=== PATIENT | male | born 1940 | race Caucasian/White ===

== ENCOUNTER 2018-07-01 10:22 | Inpatient (IN) ==
--- NOTE | 2018-07-01 10:35 | EKG Report ---
Test Performed on : 07/01/2018 10:29:38 AM Test Reason : ams Blood Pressure : / mmHG Vent. Rate : 070 BPM Atrial Rate : 070 BPM P-R Int : 248 ms QRS Dur : 152 ms QT Int : 446 ms P-R-T Axes : 068 -81 085 degrees QTc Int : 481 ms Atrial-sensed ventricular-paced rhythm with prolonged AV conduction Abnormal ECG No previous ECGs available Unconfirmed Result
[2018-07-01] MEDS ORDERED: ROCEPHIN 1 GM in NS 50 ML IV ONE (11:12)
[2018-07-01] MEDS ORDERED: ZITHROMAX 500 MG/NS 500 MG/250 ML IVPB IV ONE (11:12)
--- NOTE | 2018-07-01 11:14 | Diag Imaging Result Doc PS360 ---
EXAM: KUB ABDOMEN 07/01/2018 HISTORY: diarrhea TECHNIQUE: KUB COMMENT: The bowel gas pattern is nonspecific. The pelvis is not included on the study. There are surgical clips in the right upper quadrant. There is no evidence organomegaly or mass. IMPRESSION: Nonspecific abdomen. Electronically signed by Toi Dias 07/01/2018 11:12 AM
--- NOTE | 2018-07-01 11:15 | Diag Imaging Result Doc PS360 ---
EXAM: CHEST-PORTABLE 07/01/2018 HISTORY: weakness TECHNIQUE: AP portable upright at 1055 COMMENT: There is a dense alveolar opacity in the right upper lobe which was not present on 03/30/2018. The heart size and pulmonary vascularity are within normal limits. IMPRESSION: Right upper lobe pneumonia. Advise follow-up until clear. Electronically signed by Toi Dias 07/01/2018 11:13 AM
[2018-07-01 11:26] LABS: BASO# 0.01 X1000 (0.0-0.2); BASO% 0.1 % (0.0-0.8); EOS# 0.04 X1000 (0.0-0.7); EOS% 0.3 % (0.0-10.0); HEMATOCRIT 31.4 % (42.0-52.0); HEMOGLOBIN 9.8 g/dL (14.0-18.0); IMM GRAN# 0.07 X1000 (0.0-0.04); IMM GRAN% 0.6 % (0.0-0.5); LYMPH# 1.16 X1000 (1.2-3.4); LYMPH% 9.6 % (20.5-51.1); MCH 25.7 PG (27-31); MCHC 31.2 g/dL (33-37); MCV 82.2 FL (81-99); MONO# 1.04 X1000 (0.11-0.59); MONO% 8.6 % (1.7-9.3); MPV 9.7 FL (7.4-10.4); NEUT# 9.82 X1000 (1.4-6.5); NEUT% 80.8 % (42.2-75.2); PLT 367 X1000 (130-400); RBC 3.82 XMIL (4.7-6.1); RDW 14.1 % (11.5-14.5); WBC 12.14 X1000 (4.8-10.8)
[2018-07-01 11:28] LABS: INR 1.11; PROTIME 15.2 Seconds (11.0-16.0)
[2018-07-01 11:29] LABS: PTT 38.8 Seconds (22.3-41.8)
[2018-07-01 11:32] LABS: URINE SOURCE CLEAN CATCH
[2018-07-01 11:37] LABS: BILIRUBIN URINE NEGATIVE (NEGATIVE); BLOOD URINE NEGATIVE (NEGATIVE); COLOR YELLOW; GLUCOSE URINE NEGATIVE (NEGATIVE); KETONE URINE NEGATIVE (NEGATIVE); LEUKOCYTES URINE NEGATIVE (NEGATIVE); NITRITE URINE NEGATIVE (NEGATIVE); PH URINE 5.5; PROTEIN URINE NEGATIVE (NEGATIVE); TURBIDITY URINE CLEAR (CLEAR); UROBILINOGEN URINE NORMAL (NORMAL)
[2018-07-01 11:38] LABS: UR EPITHELIAL CELLS <10 /HPF (<10); URINE BACTERIA NEGATIVE /HPF; URINE RBC <10 /HPF (<10); URINE WBC <10 /HPF (<10)
[2018-07-01 11:43] LABS: AGAP 12; ALB/GLOB RATIO 1.2; ALBUMIN 2.9 g/dL (3.5-5.0); ALKALINE PHOSPHATASE 110 U/L (32-122); BUN 8 mg/dL (8-22); CALCIUM 7.9 mg/dL (8.8-10.2); CHLORIDE 100 mmol/L (98-107); COSMO 277; ESTIMATED GFR > 60; GLUCOSE 118 mg/dL (70-104); GOT 28 U/L (10-34); GPT 19 U/L (10-44); MAGNESIUM 1.9 mg/dL (1.5-2.7); PHOSPHORUS 3.1 mg/dL (2.7-4.5); POTASSIUM 3.8 mmol/L (3.5-5.1); SODIUM 139 mmol/L (136-145); TCO2 27 mmol/L (25-35); TOTAL BILIRUBIN 0.33 mg/dL (0.20-1.00); TOTAL PROTEIN 5.4 g/dL (6.3-8.3)
[2018-07-01] MEDS ORDERED: CALCIUM CHLORIDE SYRINGE IV ONE (11:45)
[2018-07-01] MEDS ORDERED: ZOFRAN IV PRN (11:49)
[2018-07-01] MEDS ORDERED: NS 1,000 ML IV ONE (11:49)
--- NOTE | 2018-07-01 11:49 | PROVIDER DOCUMENTATION ---
This chart was entered by Akilah Lee Scribe, acting as scribe for Gibran Stovall MD. HPI-General Adult - General Chief Complaint: Diarrhea Stated Complaint: DIARRHEA Time Seen by Provider: 07/01/18 10:45 Source: patient, family (), EMS Allergies/Adverse Reactions: Patient Allergies Allergy/AdvReac Type Severity Reaction Status Date / Time morphine AdvReac Unknown Verified 06/02/18 15:38 Home Medications: Home Medication List Medication Instructions Recorded Confirmed Last Taken Type Clopidogrel Bisulfate [Clopidogrel] 75 mg PO DAILY 03/30/18 07/01/18 Unknown History Pravastatin Sodium 40 mg PO HS 03/30/18 07/01/18 Unknown History Ranitidine [Zantac] 150 mg PO BID 03/30/18 07/01/18 Unknown History Apixaban [Eliquis] 1 tab PO BID 07/01/18 07/01/18 Unknown History Diazepam 1 tab PO BID PRN 07/01/18 07/01/18 Unknown History Sotalol HCl [Sotalol] 1 tab PO BID 07/01/18 07/01/18 Unknown History - History of Present Illness -Gen Adult Nature of Presenting Problems: Patient is a 77 year old male who presents to the ED via EMS with multiple complaints. Patient states he has been having diarrhea for 2 months. Patient's states patient has had weakness, diaphoresis, and confusion. Patient's states patient had a GI workup 1 week ago. Patient denies blood in stool. also notes cough x 1 week Location of Pain/Injury: reports: none Pain Radiation: reports: no radiation Quality of Pain: reports: none Severity: reports: mild Onset/Duration: reports: other (2 months) Timing: reports: still present, getting worse Context/Activities at Onset: reports: light activity Modifying Factors: improves with: nothing Associated Symptoms: reports: diaphoresis, diarrhea, weakness, other (confusion) Similar Symptoms Previously?: Yes Recently seen or treated by another doctor?: Yes Review of Systems - Adult - REVIEW OF SYSTEMS - ADULT Constitutional: reports: no symptoms reported Eyes: reports: no symptoms reported Ears, Nose, Mouth & Throat: reports: no symptoms reported Cardiovascular: reports: no symptoms reported Respiratory: reports: no symptoms reported Gastrointestinal: reports: diarrhea. denies: abdominal pain, nausea, vomiting Genitourinary: reports: no symptoms reported Musculoskeletal: reports: muscle weakness. denies: back pain, neck pain Integumentary: reports: no symptoms reported Neurological: reports: other (confusion). denies: dizziness/vertigo, headache/ migraines, numbness, seizure Psychiatric: reports: no symptoms reported Endocrine: reports: no symptoms reported Hematologic/Lymphatic: reports: no symptoms reported Allergic/Immunologic: reports: no symptoms reported All Other Systems: Reviewed and Negative Past History - Adult - PAST MEDICAL HISTORY-ADULT Review of Records: reports: Nursing Assessment Review, Medications Reviewed, Social history reviewed & non-contributory. Major Childhood Illnesses: reports: denies history Cardiovascular: reports: pacemaker Respiratory: reports: denies history Gastrointestinal: reports: denies history Obstetrical/Gynecological: reports: denies history Genitourinary: reports: prostate cancer Musculoskeletal: reports: denies history Neurological: reports: TIA Psychiatric: reports: denies history Endocrine/Immune: reports: denies history Other Conditions: reports: denies history - PRIOR SURGERIES/PROCEDURES Surgical/Procedure History: reports: reviewed, not pertinent, cardiac stent, pacemaker - IMMUNIZATION STATUS Childhood Immunizations: See Nurse Assessment Flu Vaccine: See Nurse Assessment - FAMILY HISTORY Family History: reviewed, not pertinent - SOCIAL HISTORY Smoking: cigarettes (former) Substance Use: denies Living Situation: family Physical Exam-General - PHYSICAL EXAM-ADULT Initial Vital Signs Reviewed: Yes - CONSTITUTIONAL General Appearance: alert, no apparent distress, lethargic - HEAD, EARS, NOSE, MOUTH & THROAT HENMT: other (dry mucous membranes) - RESPIRATORY Respiratory: chest non-tender, lungs clear, normal breath sounds - CARDIOVASCULAR Cardiovascular: systolic murmur (1/6), other (distant heart sounds) - GASTROINTESTINAL (ABDOMEN) Abdominal Exam: normal bowel sounds, soft, tenderness (LLQ) - MUSCULOSKELETAL Extremity: non-tender, normal inspection - SKIN Integumentary: pallor, other (poor skin turgor) - NEUROLOGIC Neurologic: grossly normal - PSYCHIATRIC Psych/Mental Status: normal mood/affect, oriented x 3 Progress - PLAN OF CARE/RESULTS Progress/Plan/Lab Results: Vital Signs - 8 hr 07/01/18 10:34 Temperature 97.7 F Pulse Rate 73 Respiratory Rate 18 Blood Pressure 125/66 O2 Sat by Pulse Oximetry 99 Orders Category Date Time Status Nursing- Obtain EKG once Care 07/01/18 10:25 Active Saline Loc NOW Care 07/01/18 10:25 Active CHEST-PORTABLE [RAD] Stat Exams 07/01/18 10:27 Ordered KUB ABDOMEN [RAD] Stat Exams 07/01/18 10:27 Ordered ACETONE SERUM [CHEM] Stat Lab 07/01/18 10:26 Ordered C DIFF TOXIN [STOOL] Stat Lab 07/01/18 10:26 Uncollected CBC WITH ELECTRONIC DIFF [HEME] Stat Lab 07/01/18 10:26 Uncollected COMPREHENSIVE METABOLIC PANEL [CHEM] Stat Lab 07/01/18 10:26 Uncollected LACTATE, PLASMA [CHEM] Stat Lab 07/01/18 10:27 Uncollected MAGNESIUM [CHEM] Stat Lab 07/01/18 10:27 Uncollected OCCULT BLOOD SCREENING [STOOL] Stat Lab 07/01/18 10:27 Uncollected PRO B-NATRIURETIC PEPTIDE Stat Lab 07/01/18 10:27 Uncollected PROTIME WITH INR [COAG] Stat Lab 07/01/18 10:27 Uncollected PTT [COAG] Stat Lab 07/01/18 10:27 Uncollected TROPONIN T Stat Lab 07/01/18 10:27 Uncollected TSH Stat Lab 07/01/18 10:27 Ordered TYPE & SCREEN [BBK] Stat Lab 07/01/18 10:27 Uncollected URINALYSIS W/POSS RFLX CULT [URINALYSIS] Stat Lab 07/01/18 10:27 Uncollected phos [PHOSPHORUS] [CHEM] Stat Lab 07/01/18 10:27 Uncollected EKG [EKG] Stat Ther 07/01/18 10:25 Draft Result Diagrams: 07/01/18 10:50 07/01/18 10:50 - EKG 1 Time of EKG reading by physician:: 10:29 EKG Read and Signed by:: Gibran Stovall EKG Interpretation (*Must complete 3 of following elements*): Abnormal Rate: 70 Rhythm: atrial-sensed ventricular-paced rhythm with prolonged AV conduction Comments: abnormal ECG - XRAY 1 XRAY Study: Chest Impression: See EMR Report (Signed EXAM: CHEST-PORTABLE 07/01/2018 HISTORY: weakness TECHNIQUE: AP portable upright at 1055 COMMENT: There is a dense alveolar opacity in the right upper lobe which was not present on 2017. The heart size and pulmonary vascularity are within normal limits. IMPRESSION: Right upper lobe pneumonia. Advise follow-up until clear. Electronically signed by Toi Dias 07/01/2018 11:13 AM 07/01/18 1113 Interpreting Physician: Toi Dias MD Dictated Date/Time: 1112 cc: Gibran Stovall MD; J Luis Carroll MD) 2 XRAY Study: Abdomen Impression: See EMR Report ( EXAM: KUB ABDOMEN 07/01/2018 HISTORY: diarrhea TECHNIQUE: KUB COMMENT: The bowel gas pattern is nonspecific. The pelvis is not included on the study. There are surgical clips in the right upper quadrant. There is no evidence organomegaly or mass. IMPRESSION: Nonspecific abdomen. Electronically signed by Toi Dias 07/01/2018 11:12 AM 1112 Interpreting Physician: Toi Dias MD Dictated Date/Time: 07/01/18 1112 cc: Gibran Stovall MD; J Luis Carroll MD) - CONSULTS/PCP/HOSPITALIST Notification #1 *Consult/PCP/Hospitalist*: Glen Time Discussed: 11:49 Consult Disposition: Admit Departure - Departure Date of Disposition Decision: 07/01/18 Time of Disposition Decision: 11:46 DIAGNOSIS: Hypocalcemia syndrome, Dehydration Right upper lobe pneumonia Qualifiers: Pneumonia type: due to unspecified organism Qualified Code(s): J18.1 - Lobar pneumonia, unspecified organism Anemia Qualifiers: Anemia type: iron deficiency Iron deficiency anemia type: chronic blood loss Qualified Code(s): D50.0 - Iron deficiency anemia secondary to blood loss ( chronic) Diarrhea Qualifiers: Diarrhea type: unspecified type Qualified Code(s): R19.7 - Diarrhea, unspecified Disposition: ADMITTED INPATIENT 09 Certified Medical Emergency: Emergent Condition: Fair Referrals and Follow-Ups: J Luis Carroll MD [Primary Care Provider] - - Critical Care Note This patient required my direct & personal management of CC.: No Attestation - Physician/ PAZ Attestation Patient care was provided by Advanced Practice Provider:: No The physician spent face to face time with patient:: Yes Advanced Practice Provider documentation review:: Supervising physician onsite and consulted in the evaluation and care of this patient. The physician did have a face to face encounter with the patient. This chart was documented by the indicated scribe, (Akilah Lee, Roseanna) and accurately reflects the services I performed and decisions made by me, Gibran Stovall MD, as attested by the provider's signature.
[2018-07-01] MEDS: TYLENOL PO PRN (14:43)
--- NOTE | 2018-07-01 15:20 | Diag Imaging Result Doc PS360 ---
CT THORAX W/CONTRAST - 07/01/2018 INDICATION: abnormal cxr COMPARISON: 04/02/2018 FINDINGS: There is dense consolidation of the apical and posterior segments of the right upper lobe. This appears cavitary, as a necrotic pneumonia. There is some trace infiltrate or scarring in the lingula that has improved since prior. There is a worsening infiltrate in the right middle lobe. No acute bony lesions. No drainable fluid collections. No adenopathy. IMPRESSION: 1. Necrotizing pneumonia in the right upper lobe. 2. Mixed changes in smaller infiltrates in the lingula and right middle lobe. This exam was performed using automated exposure control, adjustment of mA or kV according to patient size, and/or use of iterative reconstruction technique Electronically signed by Doyle Camarena 07/01/2018 3:18 PM
[2018-07-01] MEDS ORDERED: LOMOTIL PO PRN (15:36)
[2018-07-01] MEDS ORDERED: VALIUM PO PRN (15:59)
[2018-07-01] MEDS: ZOSYN 3.375 GM in NS 50 ML IV SCH (16:18)
[2018-07-01] MEDS ORDERED: FLAGYL PO SCH (17:00)
[2018-07-01] MEDS: DUONEB (A & A) INH SCH (23:26)
[2018-07-02] MEDS: CULTURELLE PO SCH ×3 (00:22→21:06)
[2018-07-02] MEDS: TYLENOL PO PRN ×5 (00:23→15:48)
[2018-07-02] MEDS: PRAVACHOL PO SCH ×2 (00:23→21:05)
[2018-07-02] MEDS: ZANTAC PO SCH ×3 (00:23→21:05)
[2018-07-02] MEDS: ZOSYN 3.375 GM in NS 50 ML IV SCH ×5 (00:24→21:06)
[2018-07-02] MEDS: BETAPACE PO SCH ×3 (00:33→21:04)
--- NOTE | 2018-07-02 03:52 | HISTORY AND PHYSICAL ---
CHIEF COMPLAINT: Diarrhea. HISTORY OF PRESENT ILLNESS: This 77-year-old white male presented to the emergency room this morning, unannounced, with a complaint of 2 months of diarrhea. The patient and his have a habit of showing up in either this ER or [facility] unannounced. He saw Dr. Cornejo last week for his diarrhea. He was also seen [facility]'s ER last March for hemoptysis and Ct of chest was performed there which showed bronchiectasis or consolidation of a small portion of the RUL. I had thought that this was due to epistaxis/aspiration. The patient states that he has been coughing abit, nonproductive. He has not really had shortness of breath. He has not had any chest pain. He has terrible abdominal pain and diarrhea multiple times per day, despite taking Imodium. I do not have the results of Dr. Cornejo's studies. ALLERGIES: Morphine. MEDICATIONS: Eliquis 5 mg p.o. b.i.d., clopidogrel 75 mg p.o. daily, Valium 10mg p.o. b.i.d., gabapentin 300 mg p.o. b.i.d., ranitidine 150 mg p.o. b.i.d., and sotalol 120 mg p.o. b.i.d. PAST MEDICAL HISTORY: 1. History of C difficile x3. 2. Prostate cancer. 3. Irritable bowel syndrome. 4. Coronary artery disease. 5. Gastroesophageal reflux disease. 6. Anxiety and depression. 7. Insomnia. 8. History of hypotension. 9. Atrial fibrillation. PAST SURGICAL HISTORY: 1. Prostatectomy. 2. Cardiac stents x4. 3. Pacemaker. 4. Cholecystectomy. 5. Other heart catheterization. SOCIAL HISTORY: The patient is and lives with his . Last year, they had relocated from [place] to [place], [place]. FAMILY HISTORY: Noncontributory. REVIEW OF SYSTEMS: The patient's stated that he was not making sense and this morning he was not in his usual state of mind. He has been coughing for over a month. He has had diarrhea for over a month. He has not coughed up any blood. He has not vomited. He has abdominal pain after eating. He denies any genitourinary complaints. He has vague muscle aches consistent with generalized arthritis, but otherwise negative. There have been no other neurological or psychiatric signs and symptoms, other than the 's claim that he was disoriented this morning. PHYSICAL EXAMINATION: He is difficult to understand because of somewhat slurred method of speaking, which is his baseline. HEENT: Sclerae are anicteric. Oral mucosa is adequately hydrated.. LUNGS: Few crackles in the right upper lobe. Has good air movement. No wheezing. CARDIOVASCULAR: Appears regular at the time of my examination. ABDOMEN: Bowel sounds are present. He is tender. There is no palpable mass. EXTREMITIES: No peripheral edema. NEUROPSYCHIATRIC: The patient seems alert and oriented. Speech is slurred, but this is kind of a baseline for him. NEUROLOGICAL: There are no cranial nerve deficits. DIAGNOSTIC STUDIES: White cell count 12.1, hematocrit 31.4. BUN is 8, creatinine 1.0, blood sugar 118. ProBNP was 957. Troponin was negative. Urinalysis was negative. Acetone level was normal. Microbiology shows negative flu test, negative stool for occult blood. He was C difficile toxin positive. ASSESSMENT AND PLAN: 1. In review of the patient's CT scan from March, he had some mild pleural abutment and consolidation in the right upper lobe at that time. I thought this was due to a nose bleed/aspiration and not necessarily from lung originated hemoptysis; however, bronchiectasis was introduced as a possibility.At the time of my follow up he was asymptomatic. The CT scan today shows much more extensive involvement of the right upper lobe with elements that were necrotizing. I have started the patient on Zosyn for better anaerobic coverage. I will consult Dr. Ann to see if there is anything further we need to look at. I will order sputum cultures. 2. The patient is Clostridium difficile positive again. I believe this makes 4 times in his lifetime that he has been positive for this. I have started p.o. Flagyl and probiotic agents. We will also consider use of other antidiarrheals as time goes on. 3. The patient is on sotalol and Eliquis for a-fib For the present time, and with the possibility of bronchoscopy looming, I am going to hold his Eliquis. 4. The remainder of the patient's home medications will be put back in place in some form or fashion, although I would like to reduce the amount of Valium that he has been taking. cc: J Luis Carroll MD MTDD
[2018-07-02] MEDS ORDERED: VALIUM PO PRN (07:11)
--- NOTE | 2018-07-02 07:19 | EKG Report ---
Test Performed on : 07/02/2018 07:11:43 AM Test Reason : CP Blood Pressure : / mmHG Vent. Rate : 066 BPM Atrial Rate : 066 BPM P-R Int : 248 ms QRS Dur : 152 ms QT Int : 488 ms P-R-T Axes : 066 -83 080 degrees QTc Int : 511 ms Atrial-sensed ventricular-paced rhythm with prolonged AV conduction Abnormal ECG When compared with ECG of 01-JUL-2018 10:29, (Unconfirmed) Vent. rate has decreased BY 4 BPM Unconfirmed Result
[2018-07-02] MEDS: DUONEB (A & A) INH SCH ×5 (07:40→21:00)
--- NOTE | 2018-07-02 09:13 | PROGRESS NOTE ---
DATE: 07/02/2018 SUBJECTIVE: The patient is sitting in the bed, trying to arrange his clear liquid diet for consumption. He states that his "head is splitting open". He states that he did not sleep because every time he got comfortable, he would have to jump up and go to the restroom because of diarrhea. Results of the patient's studies were discussed in full. His was not present. OBJECTIVE: Vital Signs: 98.8, 67, 100/49, mean arterial pressure of 61, 98% saturated. Physical Examination: It is noted that the patient had a rectal tube inserted. There is liquid stool which appears to be somewhat bilious or almost black. The patient's lungs are clear. He has good air movement. He has coughed up a bit of sputum which does not appear to be purulent. Laboratory: No laboratories ordered today. ASSESSMENT AND PLAN: 1. The patient has a necrotizing pneumonia in the right upper lobe. Dr. Ann has been consulted. 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 I will leave that decision-making up to Dr. Ann. He will continue on Zosyn for the present time. 2. The patient has Clostridium difficile again. He has antigen and antibody positive in his stool. He has a rectal tube. I have changed him from Flagyl over to oral vancomycin in the higher doses. I have also added some Welchol to his regimen to hopefully slow down his stooling. 3. The patient's Eliquis and Plavix have been held in the event that he needs a bronchoscopy. The patient has a pacemaker and appears to be in sinus rhythm on electrocardiogram. Due to low blood pressure, reduction in his sotalol dose may be in order. We will monitor this. 4. The remainder of home medications remain intact with the exception of a reduction in dose of Valium. cc: J Luis Carroll MD
[2018-07-02] MEDS: POTASSIUM CHLORIDE 10 MEQ in D5 NS 1,000 ML IV SCH (09:51)
[2018-07-02] MEDS: VANCOCIN PO SCH ×3 (09:52→21:04)
[2018-07-02] MEDS: WELCHOL PO SCH ×2 (10:10→21:05)
--- NOTE | 2018-07-02 12:45 | GASTROENTEROLOGY CONSULTATION ---
DATE: 07/02/2018 REASON FOR CONSULTATION: Diarrhea, C. difficile. HISTORY OF PRESENT ILLNESS: This is a 77-year-old male, known to our practice. He was actually just seen in our office on , 06/27/2018. He was referred by Dr. Carroll for diarrhea. Patient had reported having C difficile on 2 different occasions over the last year. He states he had gotten C. difficile after taking an antibiotic for a tooth extraction, He was treated with antibiotics. Diarrhea had resolved, but had come back over the last 6 weeks. He reported loss of appetite and weight loss of over 40 pounds. He has also been to the emergency room several times for IV fluids for dehydration. On 06/02/2018, he went to the emergency room and was found to be mildly anemic with a hemoglobin of 10.8 and hematocrit of 33.2. He had denied any visible blood in the stool or black stools. We had ordered a C. difficile by PCR due to patient's history of C. difficile. That test came back positive, and we tried to call the patient this morning to give him a report and start antibiotics and his answered and states he had come in to the hospital for further evaluation. Then, we subsequently received the consult. Patient currently has a rectal tube in place with liquid greenish- brown stool. He has been started on vancomycin along with Welchol. He has also been started on a probiotic. Patient does report lower abdominal tenderness. PAST MEDICAL HISTORY: Coronary artery disease, prostate cancer, irritable bowel syndrome, GERD, anxiety, depression, insomnia, history of hypotension, history of atrial fibrillation, history of C. difficile (this is the 3rd occurrence). PAST SURGICAL HISTORY: Prostatectomy, cardiac stents x4, pacemaker, cholecystectomy. ALLERGIES: Morphine, unknown reaction. HOME MEDICATIONS: Eliquis twice daily. Plavix 75 mg daily. Diazepam 1 tablet twice daily as needed. Pravastatin 40 mg every night. Zantac 150 mg twice a day. Sotalol 1 twice a day. SOCIAL HISTORY: He is , lives with his . They had moved here from [place] last year. REVIEW OF SYSTEMS: Per History of Present Illness. PHYSICAL EXAMINATION: Vital Signs: Temperature 98.8 degrees, pulse 67, blood pressure 100/49. General: Patient is awake, alert, in no acute distress. He is oriented to person and place. HEENT: Normocephalic atraumatic. Pupils equal, round, and reactive to light. Sclerae nonicteric. Lungs: Lung sounds essentially clear. Cardiovascular: Regular rate. Abdomen: Soft, tenderness in the lower abdomen. Extremities: No lower extremity edema noted. Neurologic: Patient is alert. He does seem to be anxious at times, but he is oriented to person and place. His was at the bedside and was leaving to go home for a short period of time. DIAGNOSTIC RESULTS: Laboratory: Hematology: WBC 12.14, hemoglobin 9.8, hematocrit 31.4, MCV 82.2, platelets 367,000. Coagulation: Pro-time 15.2, INR 1.11, PTT 38.8. Chemistry: Sodium 139, potassium 3.8, chloride 100, CO2 27, BUN 8 creatinine 1.0 glucose 118 calcium 7.9, phosphorus 3.1. Magnesium 1.9. Total bilirubin 0.33, AST 28, ALT 19, alkaline phosphatase 110, albumin 2.9. Urinalysis was negative. ASSESSMENT AND PLAN: 1. Clostridium difficile. In our office, we had done a C. difficile by PCR, and it was positive. Patient has been started on vancomycin, also started on Welchol, and probiotics. Continue current management. Patient has a rectal tube in place. 2. Necrotizing pneumonia. Antibiotics in place. Dr. Ann has been consulted. 3. Coronary artery disease, history of pacemaker, and history of irregular heart rate. Patient takes Eliquis and Plavix. I think those have been on hold for now. Continue current management. Since this is patient's 3rd occurrence he will most likely need an extended outpatient course of antibiotic and a tapering course. After this treatment, if C. difficile returns , would consider fecal transplant. We will continue to follow during his hospital course, and further plans will be made according to his progress. I have discussed this case with Dr. Cornejo. Dictated by LAWRENCE Estrada for Savage Cornejo MD cc: LAWRENCE May MD Timothy P. Weirich, MD [facility] HOSPITALMalcolm
--- NOTE | 2018-07-02 14:11 | PULMONOLOGY CONSULTATION ---
DATE: 07/01/2018 REASON FOR CONSULTATION: Necrotizing pneumonia. HISTORY OF PRESENT ILLNESS: Mr. Dacosta is a 77-year-old white male with a 60 pack year history for tobacco (nonsmoker for 10 years) who was seen last March at [facility] coughing up blood. CT scan of the thorax at that time revealed some atelectasis/ infiltrate in the right upper lobe with small area of consolidation/bronchiectasis in the lingular segment of the left upper lobe. By patient's recount the hemoptysis stopped. The patient has felt poorly for the last 4 to 6 weeks with ongoing weakness and diarrhea. He has had a cough with progressive shortness of breath and weakness. He has lost approximately 16 pounds over the last 3 months. He has had periodic fevers and chills. He is having multiple loose stools daily. PAST MEDICAL HISTORY: 1. History of coronary artery disease with prior stent placement and prior myocardial infarction. 2. Status post pacemaker placement. 3. Irritable bowel syndrome . 4. Diverticulosis. 5. Gastroesophageal reflux disease. 6. History of prostate cancer. 7. Osteoarthritis. 8. Prior alcohol use. 9. Status post cholecystectomy. SOCIAL HISTORY: Prior tobacco and alcohol use. FAMILY HISTORY: Noncontributory to current presentation. REVIEW OF SYSTEMS: As noted in the HPI. The patient also reports significant gingivitis. PHYSICAL EXAMINATION: General: Reveals a frail, chronically ill-appearing male who appears in no distress. He has been afebrile for the last 24 hours. Blood pressure 131/53, heart rate 93, respiratory rate 16, oxygen saturation 100%. HEENT: Pupils are equal and reactive. Oropharynx is clear. Neck: Supple. Chest: Reveals rhonchi bilaterally. Cardiac: S1- S2. Abdomen: Soft with increased bowel sounds. Extremities: Without edema. Neurologic: The patient moves all extremities without difficulty. Cranial nerves 2-12 appear to be grossly intact. LABORATORIES: CT scan of the thorax reveals a lung abscess in the right upper lobe, which was not present 04/02/2018 Infiltrates in the lingula have decreased from prior scan with increased infiltrates in the right middle lobe. White blood count 12.14, hemoglobin 9.8, platelet count 367,000. Sodium 139, potassium 3.8, chloride 100, BUN 8, creatinine 1.0, total protein 5.4, albumin 2.9, globulin fraction 2.5. C difficile toxin collected 06/29/2018 is positive, C difficile antigen test from 07/01/2018 the antigen is positive Impression: 1. Right upper lobe lung abscess 2. Bronchiectasis 3. Fluctuating infiltrates in the right middle lobe and lingula 4. Abnormal weight loss 5. Clostridium difficile colitis 6. History of tobacco use Recommendations 1. Continue current antibiotic regimen. I anticipate he will need up to 6 weeks of an oral antibiotic for clearing of this lung abscess 2. Collect sputum for C+S 2. Continue bronchial hygiene with nebulizers and the addition of incentive spirometry 3. Consider nutrition consult. Will add Boost to his dietary regimen. 4. Check immunoglobulin levels to ensure he does not need IgG replacement. 5. Treatment of the difficile colitis as you're doing. This will be more complicated due to his need for antibiotics for his lung abscess. cc: MD J Luis Parker MD MTDD
[2018-07-02] MEDS: NORCO-5 PO PRN (18:48)
--- NOTE | 2018-07-02 21:11 | PULMONOLOGY PROGRESS NOTE ---
DATE: 07/02/2018 SUBJECTIVE: The patient is awake, alert. He remains in bed. He has mild cough effort. OBJECTIVE: Vital Signs: The patient has been afebrile over the last 24 hours. BP 100/49, heart rate 67, respiratory rate 16. Oxygen saturation 98%. HEENT: Pupils are equal and reactive. Oropharynx is clear. Neck: Supple. Chest: Reveals rhonchi bilaterally. Cardiac exam: S1, S2. Abdomen: Soft with positive bowel sounds. Extremities: Without edema. LABORATORIES: IgG total is normal at 728. Sputum culture is pending. IMPRESSION: A 77-year-old with: 1. Right upper lobe lung abscess. 2. Bronchiectasis. 3. Fluctuating infiltrates in the middle lobe and lingula. 4. Clostridium difficile colitis. 5. Abnormal weight loss with protein calorie malnutrition. 6. History of tobacco use. RECOMMENDATION: 1. Continue current antibiotics pending results of microbiology data. 2. Continue bronchial hygiene. 3. Continue to promote nutrition with caloric replacement. 4. Continue treatment for difficile colitis. 5. Anticipate 4 to 6 weeks of an antibiotic for his lung abscess. This can be an oral agent. cc: MD J Luis Parker MD
[2018-07-03] MEDS: POTASSIUM CHLORIDE 10 MEQ in D5 NS 1,000 ML IV SCH ×2 (00:39→05:10)
[2018-07-03] MEDS: ZOSYN 3.375 GM in NS 50 ML IV SCH ×4 (03:04→21:50)
[2018-07-03] MEDS: VANCOCIN PO SCH ×4 (03:04→20:24)
[2018-07-03] MEDS: NORCO-5 PO PRN ×2 (05:10→21:23)
[2018-07-03 07:02] LABS: BASO# 0.01 X1000 (0.0-0.2); BASO% 0.1 % (0.0-0.8); EOS# 0.09 X1000 (0.0-0.7); HEMOGLOBIN 8.8 g/dL (14.0-18.0); LYMPH# 0.81 X1000 (1.2-3.4); LYMPH% 9.3 % (20.5-51.1); MCHC 31.4 g/dL (33-37); MCV 82.8 FL (81-99); MONO# 0.83 X1000 (0.11-0.59); MONO% 9.5 % (1.7-9.3); MPV 9.6 FL (7.4-10.4); NEUT% 80.1 % (42.2-75.2); PLT 345 X1000 (130-400); RBC 3.38 XMIL (4.7-6.1); RDW 14.2 % (11.5-14.5); WBC 8.74 X1000 (4.8-10.8)
[2018-07-03 07:29] LABS: AGAP 9; ALB/GLOB RATIO 0.9; ALBUMIN 2.4 g/dL (3.5-5.0); ALKALINE PHOSPHATASE 81 U/L (32-122); BUN 9 mg/dL (8-22); CHLORIDE 109 mmol/L (98-107); COSMO 282; CREATININE 0.9 mg/dL (0.7-1.2); ESTIMATED GFR > 60; GLUCOSE 100 mg/dL (70-104); GOT 12 U/L (10-34); GPT 10 U/L (10-44); POTASSIUM 3.5 mmol/L (3.5-5.1); SODIUM 142 mmol/L (136-145); TCO2 24 mmol/L (25-35); TOTAL BILIRUBIN 0.22 mg/dL (0.20-1.00)
--- NOTE | 2018-07-03 08:49 | PROGRESS NOTE ---
DATE: 07/03/2018 SUBJECTIVE: The patient is sitting up in bed vigorously eating his clear liquid diet. He asked to have real food at this point. He still has a rectal tube in. He has no pain. He has no cough or shortness of breath. OBJECTIVE: Vital signs: Temperature 97.4, 61, 14, and blood pressure 93/48. Lungs: The patient's lungs are clear with good air movement. No wheezing. Cardiovascular: Regular at 60. Pelvic: Rectal tube is draining blackish green liquid. LABORATORY: White cell count is 8.74, hemoglobin 8.8, hematocrit 28, BUN is 9, creatinine 0.9, glucose 100, and calcium slightly low. Total protein and albumin are low. ASSESSMENT AND PLAN: 1. Lung abscess in the right upper lobe. He is being treated with Zosyn. Dr. Ann is following. 2. The patient is C. Diff positive. He continues to have a rectal tube, but his appetite is improved. We are going to continue oral vancomycin. 3. I am going to get an ID consult because of the difficulty of balancing an appropriate 4 to 6 week antibiotic regimen in someone who already has C. Diff. 4. Eliquis and Plavix have been held. We may need to restart this. 5. The patient's blood pressure and pulse rate have remained low. He appears to be in a sinus rhythm. I am going to try and very gingerly reduce his sotalol dose in the hopes of improving his blood pressure. 6. The patient required pain medication last night, and we have him on reduced dose of Valium. cc: J Luis Carroll MD
[2018-07-03 09:10] LABS: IRON SATURATION 11 %; TIBC 113 ug/dL; TOTAL IRON 12 ug/dL (53-167); UNBOUND IRON 101 ug/dL (112-346)
[2018-07-03] MEDS: DUONEB (A & A) INH SCH ×3 (10:14→22:34)
[2018-07-03] MEDS: BETAPACE PO SCH ×2 (10:22→20:24)
[2018-07-03] MEDS: ZANTAC PO SCH ×2 (10:22→20:24)
[2018-07-03] MEDS: WELCHOL PO SCH ×2 (10:22→20:24)
[2018-07-03] MEDS: CULTURELLE PO SCH ×2 (10:23→20:24)
--- NOTE | 2018-07-03 10:45 | INFECTIOUS DISEASE CONSULT REP ---
DATE: 07/03/2018 CONCLUSION: The patient has a right upper lobe lung abscess. He also has recurrent episodes of Clostridium difficile. RECOMMENDATIONS: I agree with treating the patient with Zosyn. I have added Zyvox p.o. I have also ordered a PICC because the patient will require long-term IV antibiotics until his abscess has cleared. As regarding his recurrent Clostridium difficile, I think the patient would be a candidate for a stool transplant. DISCUSSION: The patient tells me that for the past 6 months he has been having recurrent episodes of diarrhea, which have been diagnosed as being due to Clostridium difficile. He tells me that he has had a 35 pound weight loss, and he is becoming progressively more weak. I asked him about pulmonary symptoms such as cough, chest pain or getting up sputum, and he denied all of those symptoms. The patient's CT scan and chest x-ray show a right upper lobe lung abscess. The Clostridium difficile antigen and toxin are positive. Stool culture is negative. Sputum culture is pending. Swab for influenza is negative. The patient's IgG and IgA levels are normal. Liver function studies are normal. Creatinine is 0.9. GFR is greater than 60. CBC shows a white count of 8740, hemoglobin 8.8, and platelet count 345,000. PAST MEDICAL HISTORY/REVIEW OF SYSTEMS: Eyes and ears: He has decreased hearing. The patient says his vision is okay. Neck: No stiffness. Respiratory: See present illness. GI: See present illness. : No dysuria or flank pain. Integument: No rash. Neurologic: No seizures. The patient has generalized weakness. PREVIOUS HOSPITALIZATIONS AND OPERATIONS: He has had surgery for prostate cancer. He has had a cholecystectomy. He has had placement of coronary artery stents and also placement of a pacemaker. The patient has been admitted before for Clostridium difficile diarrhea. MEDICAL DISEASES: Positive for hypertension, coronary artery disease, and a cardiac arrhythmia requiring a pacemaker. Infectious Disease history is positive for recurrent Clostridium difficile infections, and the patient has also had pneumonia before. In addition, hyperlipidemia, gastroesophageal reflux disease and prostate cancer. FAMILY HISTORY: Positive for hypertension and myocardial infarction and cancer. SOCIAL HISTORY: Patient lives in [place]. He is . He has a dog as a pet. He does not smoke cigarettes, drink alcoholic beverages or abuse drugs. ALLERGIES: The patient has an allergy to morphine. HOME MEDICATIONS: Include Eliquis, clopidogrel, diazepam, pravastatin, Zantac and sotalol. PHYSICAL EXAMINATION: Vital Signs: Temperature is 97.4 degrees, pulse 61, respirations 14, blood pressure 93/48. The patient is 6 feet tall, weighs 142 pounds. General: This is a chronically ill-appearing, elderly male. He is in no acute distress. Head, eyes, ears, nose, and throat: He has decreased hearing. His vision reveals he can see near objects. He does not have any white patches in his mouth. He has poor dental hygiene. Neck: No meningismus. Thorax: Patient has a pacemaker present on the left side. The site is not swollen or erythematous. Lungs: Clear to auscultation. Cardiovascular: Heart rate is regular. Abdomen: Soft and nontender. Extremities: There is no edema or erythema. Neurologic: The patient is awake. He has generalized weakness. There is no tremor. His sensation is intact to touch. His memory as regarding his medical history was slightly decreased. Thank you for the consult. cc: MD J Luis Mistry MD
[2018-07-03 11:46] LABS: INR 1.03; PROTIME 14.3 Seconds (11.0-16.0)
[2018-07-03] MEDS ORDERED: NS 250 ML ONE (13:28)
--- NOTE | 2018-07-03 15:13 | GASTROENTEROLOGY PROGRESS NOTE ---
DATE: 07/03/2018 SUBJECTIVE: Patient states he feels better today. He has eaten a regular diet without difficulty. He states his rectal tube came out. He has had less diarrheal stools. Dr. Knowles is following for lung abscess and C. difficile. Patient is on vancomycin and antibiotics for his lung abscess. He is also following with Dr. Ann. OBJECTIVE: Vital Signs: Temperature 93.1 degrees, pulse 62, respirations 14, blood pressure 107/64. General: Patient is awake, alert, in no acute distress. Patient has tolerated his diet for lunch. He has had less diarrhea. LABORATORY: Hematology: WBC 8.74, hemoglobin 8.8, hematocrit 28.8, MCV 82.8, platelet 345,000. Coagulation: ProTime 14.3, INR 1.03. Chemistry: Sodium 142, potassium 3.5, chloride 109, CO2 24, BUN 9, creatinine 0.9, glucose 100, calcium 8.0. Iron 12, percent saturation 11. ASSESSMENT AND PLAN: 1. Lung abscess right upper lobe. Following with Dr. Ann and Dr. Knowles. On antibiotics. 2. Recurrent Clostridium difficile. Patient is currently on vancomycin. He will likely need an extended outpatient/tapering regimen of vancomycin. If Cdiff reoccurs, would consider fecal transplant. Recommend he follow up with us as an outpatient. Will continue to follow during his hospitalization. Further plans will be made according to his progress. I have discussed this case with Dr. Cornejo. Dictated by LAWRENCE Estrada for Savage Cornejo MD cc: LAWRENCE May MD Timothy P. Weirich, MD MTDD
[2018-07-03] MEDS: ZYVOX PO SCH (18:02)
[2018-07-03] MEDS: PRAVACHOL PO SCH (20:24)
[2018-07-04] MEDS: VANCOCIN PO SCH ×4 (01:00→21:05)
--- NOTE | 2018-07-04 02:02 | PULMONOLOGY PROGRESS NOTE ---
DATE: 07/03/2018 SUBJECTIVE: The patient is awake, alert, and conversant. He is having some ongoing diarrhea. OBJECTIVE: Vital Signs: Blood pressure 126/57, heart rate 69, respiratory rate 14, temperature 97.8 degrees, oxygen saturation 100% on room air. HEENT: Pupils are equal and reactive. Oropharynx is clear. Neck: Supple. Chest: Reveals rhonchi bilaterally. Cardiac: S1, S2. Abdomen: Soft and without hepatosplenomegaly. Extremities: Without edema. LABORATORIES: Sputum culture reveals sparse growth. IMPRESSION: A 77-year-old with: 1. Right upper lobe abscess. 2. Bronchiectasis. 3. Fluctuating infiltrates in the middle lobe and lingula. 4. Clostridium difficile colitis. 5. Protein calorie malnutrition. RECOMMENDATION: 1. Continue current antibiotics. 2. Continue bronchial hygiene. 3. Continue treatment for C. difficile colitis. 4. Encourage p.o. intake. 5. Anticipate prolonged course of antibiotics, making it difficult to manage his C difficile colitis. cc: MD J Luis Parker MD
[2018-07-04] MEDS: ZOSYN 3.375 GM in NS 50 ML IV SCH ×4 (04:40→21:09)
[2018-07-04] MEDS: ZYVOX PO SCH ×2 (06:23→18:05)
--- NOTE | 2018-07-04 08:39 | PROGRESS NOTE ---
DATE: 07/04/2018 SUBJECTIVE: The patient states that he is feeling better. He is tolerating real food without difficulty. He had less bowel movements yesterday, particularly while he was trying to sleep. He states that he is still weak. We discussed nutrition and vitamin deficiencies. OBJECTIVE: Vital Signs: 98.6, 60, 14, 133/52, 99% saturated on room air. Physical Examination: General: The patient is alert, oriented, conversive, and appropriate. Lungs: Clear to auscultation. Cardiovascular: Regular at approximately 60 beats per minute. Laboratory: Yesterday's white count was 8.7, hematocrit 28. Iron level was 12 with 11% saturation, folic acid level was low at 6.8. ASSESSMENT AND PLAN: 1. The patient will have long-term antibiotics for his lung abscess. I would like to send the patient home tomorrow if we can get home infusion set up. 2. Clostridium difficile seems to be improving a bit on his present regimen with Zyvox and Welchol. We will continue this on an outpatient basis as well. 3. Infectious disease consult was noted. I am not sure which antibiotics he will be sent home on, but I suspect it will be Zyvox plus an intravenous since he had a peripherally inserted central catheter line put in. 4. Eliquis and Plavix have been held, mainly due to the patient's anemia and the thought that he might need a procedure. I do not think any procedure is planned in regard to his lung abscess or his colitis. We are likely okay to restart this. 5. The patient's sotalol dose was reduced in the hopes of increasing his blood pressure and his pulse rate slightly while maintaining a sinus rhythm. Thus far, it seems to be working appropriately. 6. The patient was folic acid deficient as well as iron deficient. I am going to give him an intravenous banana bag with multivitamins, etc., and also an iron dextran infusion because I do not think he would be able to eat enough food or take enough medicine to restore those lost or deficient vitamin stores. 7. Looking for discharge tomorrow. I asked the patient about rehab. He does not want to go to rehab. I asked him to try and get up and stir around in the hospital with assistance today. cc: J Luis Carroll MD
[2018-07-04] MEDS: ZANTAC PO SCH ×2 (08:59→21:05)
[2018-07-04] MEDS: BETAPACE PO SCH ×2 (08:59→21:05)
[2018-07-04] MEDS: CULTURELLE PO SCH ×2 (08:59→21:05)
[2018-07-04] MEDS: WELCHOL PO SCH ×2 (09:50→21:05)
[2018-07-04] MEDS: DUONEB (A & A) INH SCH ×3 (10:19→21:10)
[2018-07-04] MEDS ORDERED: M.V.I.-12 10 ML, FOLIC ACID 1 MG, MAGNESIUM SULFATE 1 GM, THIAMINE 100 MG in NS 1,000 ML IV ONE (10:30)
[2018-07-04] MEDS ORDERED: INFED 25 MG in NS 25 ML IV ONE (11:00)
[2018-07-04] MEDS ORDERED: NS IV ONE (12:00)
[2018-07-04] MEDS ORDERED: INFED IV ONE (12:00)
--- NOTE | 2018-07-04 14:41 | GASTROENTEROLOGY PROGRESS NOTE ---
DATE: 07/04/2018 SUBJECTIVE: Mr. Dacosta is resting in his bed comfortably. He had only 3 bowel movements yesterday. Today he has not had any diarrhea, in fact he had not had any bowel movement at all. He is feeling comfortable. He has tolerated his diet well. He denies any new complaints. He is waiting to be transferred to a rehab facility. PHYSICAL EXAMINATION: Vital signs: Temperature 98.6 degrees, pulse 60 per minute, breathing 14, blood pressure is 133/52. Abdomen: Flat soft, nontender. Bowel sounds audible. IMPRESSION AND PLAN: Recurrent Clostridium difficile colitis. He has responded very well to vancomycin and current treatment. Agree to continue the vancomycin at least for 2 weeks, and he needs to be followed up at the office as an outpatient and we will decide about possible fecal transplant depending on his symptoms. I have explained the findings and plan to the patient. He understands and would follow up with me once discharged. cc: MD J Luis Lee MD
--- NOTE | 2018-07-04 18:05 | INFECTIOUS DISEASE PROGRESS NO ---
DATE: 07/04/2018 PRESENT ILLNESS: Mr. Dacosta is being treated for right upper lobe lung abscess. He also has recurrent C difficile, which is being followed by Dr. Cornejo. MEDICATIONS: He is receiving Zosyn 3.375 g IV every 6 hours and Zyvox 600 mg by mouth every 12 hours. He is also on oral vancomycin 250 mg every 6 hours. PHYSICAL EXAMINATION: Vital Signs: Temperature is 98.6, pulse rate 78, respiratory rate 16, blood pressure 124/59. O2 sat is 90% on room air. General: This is an elderly, thin, chronically ill-appearing gentleman. He is lying in the bed, currently in no acute distress. HEENT: Atraumatic, normocephalic. Oral mucous membranes are pink and moist. Conjunctivae are pale. Neck: Supple. Trachea is midline. Cardiovascular: Heart rate is regular. Radial and pedal pulses are +1 bilaterally. No edema noted. Respiratory: Lung sounds have some mild rhonchi in the upper lobes, diminished in the bases. Abdomen: Soft, flat and nontender on palpation. Bowel sounds are active. Neurologic: He is awake, alert and appropriate. Able to move all extremities fairly well in the bed. There is a PICC line in place to his right upper arm. The site is without edema, erythema or drainage. LABORATORY AND X-RAY: None available today. ASSESSMENT AND PLAN: Mr. Dacosta is being treated for a right upper lobe cavitary pneumonia with recurrent C difficile. He is receiving Zosyn and Zyvox, which we will continue. Dr. Cornejo has stated that he will follow up with the patient in his office regarding the C difficile. it looks as though the plan is to send him out tomorrow. At this point, he seems to be willing to go to a rehab, and his has looked into the possibility, as well. I have gone ahead and put written out orders for him to go to rehab with Zosyn 4.5 g IV every 8 hours for 3 weeks and Zyvox 600 mg by mouth every 12 hours for 3 weeks. Since this is a cavitary pneumonia, it may take more than 3 weeks for treatment. I have also put in orders for him to be picked up by an infusion company if he is discharged from rehab before the 3 weeks is up. The plan is to see him back in our office at which time, we will repeat his CT of the thorax to evaluate the progress of the lesion. At last check, his white count was normal. There is a sputum culture with a preliminary report of normal osmel at this time which we will check tomorrow. Orders for rehab will also include lab work to be done every Sunday and follow-up with us in 3 weeks, as well as continue Zyvox by mouth every 12 hours for 3 weeks. These plans have been discussed with and recommended by Dr. Knowles. COMORBIDITIES: For Mr. Dacosta include that he is elderly with protein calorie malnutrition, recurrent C difficile, coronary artery disease, gastroesophageal reflux disease and history of prostate cancer. Dictated by LAWRENCE Thomas for Luan Knowles MD This chart was documented by, LAWRENCE Thomas and accurately reflects the services performed, treatment plan and medical decisions as attested by the providers signature Luan Knowles MD. cc: MD J Luis Mistry MD MTDD
[2018-07-04] MEDS: PRAVACHOL PO SCH (21:05)
--- NOTE | 2018-07-04 21:32 | PULMONOLOGY PROGRESS NOTE ---
DATE: 07/04/2018 SUBJECTIVE: The patient is awake, alert and conversant. He reports he feels better. He reports his diarrhea has diminished. OBJECTIVE: The patient has been afebrile and may have been hypothermic over the last 24 hours. Blood pressure 100/45, heart rate 75, respiratory rate 19, oxygen saturation 97% on room air. HEENT: Pupils are equal and reactive. Oropharynx is clear. Neck is supple. Chest reveals rhonchi bilaterally. Cardiac exam: S1, S2. Abdomen has mild increased tympany. Extremities are without edema. LABORATORY DATA: Sputum culture reveals normal osmel. White blood count not obtained today. Chemistries: Sodium 142, potassium 3.5, chloride 109, bicarbonate 24, BUN 9, creatinine 0.9, glucose 100. IMPRESSION: A 77-year-old with: 1. Right upper lobe abscess. 2. Bronchiectasis. 3. Fluctuating infiltrates in the middle lobe and lingula. 4. Clostridium difficile colitis. 5. Protein-calorie malnutrition. RECOMMENDATIONS: 1. Continue current antibiotic regimen, which is being followed by Infectious Disease. 2. Continue bronchial hygiene. 3. Encourage p.o. intake. 4. Anticipate prolonged course of antibiotics. cc: MD J Luis Parker MD
[2018-07-05] MEDS: VANCOCIN PO SCH ×4 (02:21→20:57)
[2018-07-05] MEDS: ZOSYN 3.375 GM in NS 50 ML IV SCH ×5 (02:22→20:57)
[2018-07-05] MEDS: ZYVOX PO SCH ×2 (06:05→20:57)
[2018-07-05] MEDS: DUONEB (A & A) INH SCH ×3 (08:06→21:05)
[2018-07-05] MEDS: BETAPACE PO SCH ×2 (09:30→20:57)
[2018-07-05] MEDS: WELCHOL PO SCH ×2 (09:30→20:57)
[2018-07-05] MEDS: CULTURELLE PO SCH ×2 (09:30→20:57)
[2018-07-05] MEDS: ZANTAC PO SCH ×2 (09:30→20:57)
[2018-07-05] MEDS: ICAR-C PLUS PO SCH (09:30)
--- NOTE | 2018-07-05 14:15 | GASTROENTEROLOGY PROGRESS NOTE ---
DATE: 07/05/2018 SUBJECTIVE: The patient states he is feeling better. So far today he has had 1 loose bowel movement. He is eating small amounts of his diet. OBJECTIVE: Vital Signs: Temperature 98.1 degrees, pulse 68, respirations 22, blood pressure 127/67. General: The patient is awake, alert, no acute distress. LABORATORY: Hematology: WBC 8.74, hemoglobin 8.8, hematocrit 28.8, MCV 82.8, platelet 345,000. Chemistry: Sodium 142, potassium 3.5, chloride 109, CO2 of 24, BUN 9, creatinine 0.9, glucose 100, calcium 8. ASSESSMENT AND PLAN: Recurrent Clostridium difficile colitis. Currently he has responded to vancomycin. Continue for at least 2 weeks. Recommend he follow up with us as an outpatient. We will decide if he needs possible fecal transplant. Further plans to be made as needed. I have discussed this case with Dr. Cornejo. Dictated by LAWRENCE Estrada for Savage Cornejo MD cc: LAWRENCE May MD Timothy P. Weirich, MD
--- NOTE | 2018-07-05 19:17 | INFECTIOUS DISEASE PROGRESS NO ---
DATE: 07/05/2018 PRESENT ILLNESS: Mr. Dacosta is being treated for a right upper lobe lung abscess as well as infiltrates which may represent pneumonia. He also has recurrent C. difficile, being followed by Dr. Cornejo. MEDICATIONS: He is receiving Zyvox 600 mg by mouth every 12 hours and Zosyn 3.375 g IV every 6 hours. PHYSICAL EXAMINATION: Vital Signs: Temperature is 99.2 degrees, pulse rate 78, respiratory rate 22, blood pressure 128/65, O2 saturation 100% on room air. General: This is a thin, elderly, chronically ill-appearing gentleman who is lying in the bed on his left lateral side in no acute distress. HEENT: Atraumatic, normocephalic. Oral mucous membranes are pink and moist. Conjunctivae are pale. Neck: Supple. Trachea is midline. Respiratory: Lung sounds have some mild rhonchi noted diminished in the bases. Cardiovascular: Heart rate is regular. Abdomen: Soft, flat, nontender. Bowel sounds are active. Neurologic: He is awake, alert and appropriate, able to move around in the bed without assistance. There is a PICC line to his right upper arm. The site is without edema, erythema or drainage. LABORATORY AND X-RAY: None available today. ASSESSMENT AND PLAN: Mr. Dacosta is being treated for right upper lobe cavitary pneumonia with possible pneumonia to the lingula and right middle lobes as well. He has a recurrent Clostridium difficile, and has had a large watery brown stool today. At this point we will continue the Zyvox and Zosyn as ordered as well as oral vancomycin to treat his C. difficile. The plan initially, as laid out by Dr. Carroll, was for the patient to be discharged today. We have orders put in for antibiotics at rehab as well as infusion company to follow up on his discharge from the rehab. Our plan is to see him back in the office in 3 weeks after discharge to reevaluate the progress of his cavitary, right-sided pneumonia. These plans have been discussed with and recommended by Dr. Knowles. COMORBIDITIES: Include he is elderly with protein calorie malnutrition, recurrent C. difficile, coronary artery disease, gastroesophageal reflux disease, and history of prostate cancer. Dictated by LAWRENCE Thomas for Luan Knowles MD This chart was documented by, Karen S. Bethel, FIELD CARE COORDINATOR and accurately reflects the services performed, treatment plan and medical decisions as attested by the providers signature Luan Knowles MD. cc: MD J Luis Mistry MD MTDD
[2018-07-05] MEDS: PRAVACHOL PO SCH (20:57)
[2018-07-06] MEDS: VANCOCIN PO SCH ×4 (03:24→20:20)
[2018-07-06] MEDS: ZOSYN 3.375 GM in NS 50 ML IV SCH ×5 (03:24→22:10)
[2018-07-06] MEDS: ZYVOX PO SCH ×2 (05:25→18:09)
--- NOTE | 2018-07-06 07:23 | Diag Imaging Result Doc PS360 ---
EXAM: CHEST-1 VIEW 07/06/2018 HISTORY: SOB TECHNIQUE: AP portable at 0538 COMMENT: There is dense alveolar opacity in the right upper lobe. This was also present on 07/01/2018 but not on 03/30/2018 and is slightly less extensive than on the previous study. The cavity or other lucency laterally within the opacity is less conspicuous on the current study. Otherwise the appearance of the chest has not changed appreciably. IMPRESSION: Right upper lobe pneumonia. Electronically signed by Toi Dias 07/06/2018 7:20 AM
[2018-07-06] MEDS: DUONEB (A & A) INH SCH ×3 (09:19→21:05)
--- NOTE | 2018-07-06 09:31 | PROGRESS NOTE ---
DATE: 07/06/2018 SUBJECTIVE: The patient was on his way to go the bathroom when I came in the room. He was strong enough really to ambulate by himself, but still feels pretty weak. OBJECTIVE: Vital signs: He remains afebrile, pulse 79, respirations 19, blood pressure 134/61. HEENT: Pupils are equal. Neck: No distended neck veins. Lungs: Clear anterior and posterior. Cardiovascular: Regular rhythm and rate without murmur or S3. Abdomen: Soft. Skin: Warm and dry. Extremities: No pedal edema. IMAGING: Chest x-ray from this morning, right upper lobe pneumonia appreciated. ASSESSMENT AND PLAN: 1. Right upper lobe pneumonia, lung abscess, as well as infiltrates which represent pneumonia. He has had recurrent Clostridium difficile, followed by Dr. Cornejo. He is on Zyvox 600 mg IV q.12 and Zosyn 3.375 g IV q.6. His Clostridium difficile antigen was positive. Stools did not grow any salmonella, shigella, Campylobacter or Escherichia coli. Stool for white blood cells, there were many. So continue his present antibiotic regimen. He is on Welchol. A decision on whether to start p.o. vancomycin in the future. We will see how he does clinically. 2. He is on Eliquis and Plavix and we have held these mainly because of patient's anemia and potential for maybe needing a procedure in regard to his lung abscess. 3. The patient's sotalol dose was reduced in hopes of increasing his blood pressure, pulse rate. 4. Folic acid deficiency as well as iron deficiency. Give him a banana bag and multivitamin daily. 5. He reports he is too weak to go home, his cannot take care of him, though we need to continue our hospital course. REVIEW OF HIS ORDERS: He is on vancomycin 250 mg p.o. q.6 hours, so he is already on vancomycin. He is on Welchol 625 mg b.i.d. He gets Valium 5 mg b.i.d. p.r.n., hydrocodone 5 one q.8 hours p.r.n., iron carbonyl with vitamin C 1 a day, lactobacillus rhamnosus 1 b.i.d., Zyvox 600 mg q.12, Pravachol 40 mg at bedtime, Zantac 150 mg b.i.d., Betapace 80 mg b.i.d., and Zosyn 3.375 g q.6. We will continue this regimen. cc: MD J Luis Umana MD
[2018-07-06] MEDS: CULTURELLE PO SCH ×2 (10:52→20:19)
[2018-07-06] MEDS: BETAPACE PO SCH ×2 (10:52→20:20)
[2018-07-06] MEDS: ZANTAC PO SCH ×2 (10:52→20:20)
[2018-07-06] MEDS: WELCHOL PO SCH ×2 (10:52→20:20)
[2018-07-06] MEDS: ICAR-C PLUS PO SCH (10:52)
[2018-07-06] MEDS: PRAVACHOL PO SCH (20:20)
[2018-07-07] MEDS: ZOSYN 3.375 GM in NS 50 ML IV SCH ×4 (03:26→21:36)
[2018-07-07] MEDS: VANCOCIN PO SCH ×4 (03:26→21:37)
[2018-07-07] MEDS: ZYVOX PO SCH ×2 (05:17→18:31)
--- NOTE | 2018-07-07 07:52 | PROGRESS NOTE ---
DATE: 07/07/2018 SUBJECTIVE: Mr. Dacosta is feeling better. He was sitting up in bed. He had his shirt on and was putting his socks on. He wanted me to turn the alarm off on his bed, said there is no way he would get up without some help, but he does feel better. His bowels were loose yesterday, but he feels like that may be a little better today. OBJECTIVE: Vital Signs: Afebrile. Temperature 97.9 degrees, pulse 72, respirations 16, blood pressure 117/65. HEENT: Pupils are equal and round. Lungs: Clear in all lung staley. Cardiovascular: Regular rate without murmur or S3. Abdomen: Soft, nondistended. Extremities: No pedal edema. LABORATORY STUDIES: Urine output 1800 mL. RADIOLOGIC STUDIES: Chest x-ray: Right upper lobe pneumonia. X-ray was repeated yesterday. ASSESSMENT AND PLAN: 1. Right upper lobe pneumonia with suspected lung abscess. 2. Underlying possible Clostridium difficile although stool antigen was negative. The patient is on vancomycin p.o. He is getting Zyvox 600 mg IV q.12 h. and Zosyn 3.375 g IV q.6 h. 3. We are holding the Eliquis and Plavix because of his anemia. 4. Blood pressure has ranged from 109 to 129 over 43 to 73. He does feel stronger. 5. Folic acid deficiency and iron deficiency. Getting folic acid and iron. He is getting a banana bag, multivitamin. 6. General weakness, deconditioning. He feels too weak to go home. I think they are contemplating a needle biopsy of his lung, so continue physical therapy, although that is not ordered at the present time we may want to pursue physical therapy depending on what they are going to do for lung biopsy. 7. Review of his orders. I do not see any change at this point. He is on lactobacillus and he is on Welchol 625 mg b.i.d. He is on Zantac 150 mg b.i.d. cc: MD J Luis Umana MD
[2018-07-07 07:53] LABS: BASO# 0.01 X1000 (0.0-0.2); BASO% 0.1 % (0.0-0.8); EOS# 0.08 X1000 (0.0-0.7); EOS% 1.2 % (0.0-10.0); HEMOGLOBIN 9.2 g/dL (14.0-18.0); IMM GRAN# 0.03 X1000 (0.0-0.04); IMM GRAN% 0.4 % (0.0-0.5); LYMPH# 1.11 X1000 (1.2-3.4); LYMPH% 16.3 % (20.5-51.1); MCH 25.3 PG (27-31); MCHC 30.7 g/dL (33-37); MCV 82.4 FL (81-99); MONO# 0.78 X1000 (0.11-0.59); MONO% 11.5 % (1.7-9.3); MPV 9.8 FL (7.4-10.4); NEUT# 4.79 X1000 (1.4-6.5); NEUT% 70.5 % (42.2-75.2); PLT 337 X1000 (130-400); RBC 3.64 XMIL (4.7-6.1); RDW 14.6 % (11.5-14.5)
[2018-07-07 08:17] LABS: AGAP 13; BUN 6 mg/dL (8-22); CALCIUM 7.9 mg/dL (8.8-10.2); CHLORIDE 107 mmol/L (98-107); COSMO 284; CREATININE 0.9 mg/dL (0.7-1.2); ESTIMATED GFR > 60; GLUCOSE 89 mg/dL (70-104); POTASSIUM 3.1 mmol/L (3.5-5.1); SODIUM 144 mmol/L (136-145); TCO2 24 mmol/L (25-35)
--- NOTE | 2018-07-07 09:07 | Diag Imaging Result Doc PS360 ---
EXAM: CHEST-2 VIEWS 07/07/2018 HISTORY: R upper ;obe pneumonia , ? abcess TECHNIQUE: PA and lateral chest COMMENT: There is a PICC line with its tip in the superior vena cava and a pacemaker on the left. There is alveolar opacity in the right upper lobe which is slightly more extensive but less dense than on 07/06/2018. The CT of the chest dated 07/01/2018 demonstrated an abscess in this area. IMPRESSION: Right upper lobe pneumonia. Electronically signed by Toi Dias 07/07/2018 9:05 AM
[2018-07-07] MEDS: DUONEB (A & A) INH SCH ×3 (09:29→21:10)
[2018-07-07] MEDS: WELCHOL PO SCH ×2 (10:10→21:37)
[2018-07-07] MEDS: ICAR-C PLUS PO SCH (10:10)
[2018-07-07] MEDS: BETAPACE PO SCH ×2 (10:10→21:37)
[2018-07-07] MEDS: CULTURELLE PO SCH ×2 (10:10→21:37)
[2018-07-07] MEDS: ZANTAC PO SCH ×2 (10:10→21:37)
[2018-07-07] MEDS ORDERED: KLOR-CON PO ONE (18:15)
[2018-07-07] MEDS: PRAVACHOL PO SCH (21:37)
[2018-07-08] MEDS: VANCOCIN PO SCH ×3 (04:05→14:20)
[2018-07-08] MEDS: ZOSYN 3.375 GM in NS 50 ML IV SCH ×2 (04:05→10:52)
[2018-07-08] MEDS: ZYVOX PO SCH (05:55)
[2018-07-08] MEDS: CULTURELLE PO SCH (10:51)
[2018-07-08] MEDS: BETAPACE PO SCH (10:51)
[2018-07-08] MEDS: WELCHOL PO SCH (10:52)
[2018-07-08] MEDS: ICAR-C PLUS PO SCH (10:52)
[2018-07-08] MEDS: ZANTAC PO SCH (10:52)
[2018-07-08 11:19] VITALS: BP 138/60
[2018-07-08] MEDS: DUONEB (A & A) INH SCH (11:25)
--- NOTE | 2018-07-08 13:42 | DISCHARGE SUMMARY ---
ADMISSION DATE: 07/01/2018 DISCHARGE DATE: 07/08/2018 DISCHARGE DIAGNOSES: 1. Right upper lobe pulmonary abscess/pneumonia. 2. C. Difficile colitis (recurrent). 3. History of prostate cancer. 4. Coronary artery disease. 5. Atrial fibrillation with pacemaker placement. 6. Anxiety and depression. 7. Chronic anemia. 8. Folate deficiency. 9. Iron deficiency. CONSULTATIONS: 1. Dr. Ruben Ann 2. Savage Cornejo MD OPERATIVE PROCEDURES: None. HOSPITAL COURSE: This 77-year-old white male presented to the emergency room with a complaint of 2 months of diarrhea. He had also had an abnormal CT scan performed in March, and we are awaiting follow-up on a right upper lobe consolidation. When the patient was admitted, he was found to be [id number] dehydrated. His chest x-ray showed a significant right upper lobe infiltrate. Followup CAT scan showed cavitary pneumonia/abscess in the right upper lobe. The patient also tested positive for C. Diff. This is I believe his 3rd episode of C. Diff colitis. After admission, pulmonary and GI consultation was obtained as well as Infectious Disease. We originally started the patient on Zosyn, which seemed to be adequate. Dr. Luan Knowles added Zyvox. We also put the patient on p.o. vancomycin for his recurrent C. Diff colitis. Over the course of days, he seemed to improve. He was in nutritional deficit and supplements were added. He had a banana bag vitamin supplementation and was given an iron infusion. During the week prior to discharge, the patient claimed that he wanted to go home, but the family insisted that he needed rehab, and that they could not take care of him at home. Rehabilitation bed was sought, but there was difficulty in getting this arranged. Finally, on Sunday, a bed was found at [facility] and the patient's condition had actually improved over the weekend quite a bit to where he was having solid stools and only mild cough. Arrangements were made for transfer to [facility]. The patient will need 6 weeks of IV antibiotics, and a PICC line in his right arm. He will be getting Zosyn 3 times a day. He will be getting Zyvox by mouth and p.o. vancomycin. Infectious Disease doctor had outlined a q.6 hour p.o. vancomycin for a total of about 2 weeks, and then we could taper him off to twice daily until stools were cleared. Consideration for fecal transplant was mentioned in both Dr. Cornejo and Dr. Knowles's notes. During the hospitalization, Dr. Ann did not feel it would be necessary to biopsy or bronch the patient, and he was treated empirically. The patient has a chronic anemia, but hopefully with replenishment of his folate and iron stores, he will be producing more blood cells. During the patient's hospitalization because the possibility of procedure was considered and the fact that he was anemic, his clopidogrel and Xarelto were both held. This will be started up upon discharge. The patient is transferred to [facility] for rehabilitation, gait training, and overall strengthening with nutritional support. cc: J Luis Carroll MD
== END 2018-07-08 14:25 | DRG 177 ==
LOC: SUPCPDRO → ED 10:22 → 4N 12:14 → 3N 12:24
PROVIDERS: ADMIT Internal Medicine; ATTEND Internal Medicine
CPT/HCPCS: 36569; 71010; 71020; 71045; 71046; 71260; 74000; 74018; 80048; 80053; 81001; 82009; 82270; 82607; 82746; 82784; 83540; 83550; 83605; 83735; 83880; 84100; 84132; 84443; 84484; 85025; 85610; 85730; 86850; 86900; 86901; 87040; 87045; 87046; 87070; 87205; 87275; 87276; 87324; 87449; 87493; 87804; 89055; 89220; 93005; 93010; 94640; 94761; 96365; 96375; 99285; A9270; J0456; J0696; J1750; J2405; J2543; J3411; J3475; J3480; J7030; J7042; J7050; Q9967